=== PATIENT | female | born 1995 | race African-American/Black ===

== ENCOUNTER 2019-01-02 12:33 | Inpatient (IN) | payer MEDICAID, OTHER ==
[2019-01-02 13:15] VITALS: BMI 38.0
[2019-01-02 13:48] LABS: Amnisure Internal Control QC ACCEPTABLE (ACCEPTABLE); Amnisure Test RUPTURE DETECTED (No Rupture)
[2019-01-02] MEDS ORDERED: hydrALAZINE 20 MG/ML VIAL SLOW IVP PRN ×2 (13:50→14:11)
[2019-01-02] MEDS ORDERED: NS / Oxytocin 40 units/1000ml 1,000 ML IV PRN (14:11)
[2019-01-02] MEDS ORDERED: Misoprostol 100 MCG TAB PO SCH ×3 (14:11→23:15)
[2019-01-02] MEDS ORDERED: Promethazine HCl 25 MG/ML VIAL IM PRN (14:11)
[2019-01-02] MEDS ORDERED: Ondansetron PF 4 MG/2 ML Vial IVP PRN (14:11)
[2019-01-02] MEDS ORDERED: Lidocaine 1% (PF) 30 ML VIAL SC PRN (14:11)
--- NOTE | 2019-01-02 14:30 | PDOC.LDHP ---
Labor and Delivery H&P HPI: 23 yo G1 at 37.5 by LMP/15.3wk sono here for leaking. Started last night at 11pm , did not resolve so came in today. Endorses FM, denies VD/VB. Denies any other concerns, feeling excited and nervous about having baby.Sees Dr. Mondragon at [facility]. Desires epidural. Current gestational age (weeks): 37 (37.5) Grav: 1 Para: 0 OB History Details: No complications during , first Current medications: pre-clinton vitamins Allergies/Adverse Reactions: Allergies Allergy/AdvReac Type Severity Reaction Status Date / Time No Known Allergies Allergy Verified 01/02/19 13:10 Social history: none - Physical Exam Vital signs reviewed and normal: yes General: NAD, resting Heart: RRR Lungs: CTAB Abdomen: NTTP Extremeties: no edema FHT: category 1 (150/mod/accels) [place] contractions every: uterine irritability - Vaginal Exam cm dilated: 1 Effacement: 0% Station: -3 - OB Labs Blood type: B RH: positive Antibody Screen: negative RPR: negative HEPSAg: negative 1 hour GCT: negative (125) Rubella: immune Additional Labs: chlamydia negative gonorrhea negative - Assessment L&D Assessment: term rupture in membranes - Plan Plan: admit to L&D -: 23 yo G1 at 37.5 by LMP/15.3 wk sono here for term SROM 1. sIUP, latent labor, SROM -amnisure positive, 1.5/th/high -> PO cytotec 50mcg, recheck in four hours -when sanches 6, start pit since has been ruptured 11 hours -FHT Cat I, uterine irritability -GBS pending, mom getting yellow card. If positive needs PCN ppx -did not obtain 3T labs, will rpt here 2. Anemia of -Hb 10.5 in September, stable -Sickle cell index negative -Can recheck after vs. empirically start on PO iron Admit to L&D for induction of labor Discussed with Dr. Isabel Ness - Attending - Attending Attestation Date/Time: 01/02/191900 I personally evaluated the patient and discussed the management with Dr. [] I agree with the History, Examination, Assessment and Plan documented above with any addition or exceptions noted below. GBS unknown. No RF. No PCN indicated at this time. No e/o chorioamnionitis. status reassuring.
[2019-01-02] MEDS: Lactated Ringer's 1,000 ML IV SCH ×2 (14:50→23:38)
[2019-01-02 17:09] LABS: Hemoglobin 11.4 g/dL (12.0-16.0); Mean Corpuscular HGB CONC 33.9 g/dL (32.0-36.0); Mean Corpuscular Hemoglobin 30.7 pg (27.0-31.0); Mean Corpuscular Volume 90.5 fL (78.0-98.0); Mean Platelet Volume 7.2 fL (7.4-10.4); Platelet Count 249 thou/uL (130-400); RBC Distribution Width 12.1 % (11.5-14.5); Red Blood Cell (RBC) Count 3.73 mill/uL (4.20-5.40); White Blood Cell (WBC) Count 7.2 thou/uL (4.8-10.8)
[2019-01-02 17:37] LABS: Syphilis Antibody Nonreactive (Nonreactive); Syphilis Antibody Index 0.12 S/CO (<1.00 Non-Reactive)
[2019-01-02 17:39] LABS: HBSAg Index 0.23 S/CO (0-0.99); HIV (1/2) Antibody/Antigen Non-Reactive (NonReactive); HIV 1/2 INDEX 0.08 S/CO (<1.00); Hep B Surf Ag Non-Reactive S/CO (NonReactive)
--- NOTE | 2019-01-02 20:23 | PDOC.LDPN ---
Labor & Delivery Progress Note - Subjective Subjective: comfortable - Objective Vital signs reviewed and normal: yes General: resting Uterine fundus: non tender Dilation: 2 Effacement: 0% Station: -3 FHT: category 1 [place] contractions every: uterine irritability - Assessment (1) Term Code(s): Z34.90 - ENCNTR FOR SUPRVSN OF NORMAL , UNSP, UNSP TRIMESTER Current Visit: Yes Status: Acute Plan: labor augmentation -: 23 yo G1 at 37.5 by LMP/15.3 wk sono here for IOL for SROM 1. sIUP, latent labor, SROM -amnisure positive -//, give 2nd dose of cytotec 25mcg, recheck 4 hours -FHT Cat I, uterine irritability -GBS negative 2. Prolonged rupture of membranes -ruptured on 01/01 @ 2300 -no fever, stable -continue to monitor for s/s infection 3. Anemia of -Hb 10.5 in September, stable -Sickle cell index negative -Can recheck after vs. empirically start on PO iron Continue labor augmentation Discussed with Dr. Hall
--- NOTE | 2019-01-02 23:11 | PDOC.LDPN ---
Labor & Delivery Progress Note - Subjective Subjective: comfortable, no concerns - Objective Vital signs reviewed and normal: yes (BP110/72, HR 108) General: NAD, resting, breathing through contractions Uterine fundus: non tender Dilation: 3 Effacement: 25% Station: -3 FHT: category 1 (FHR 157), variability present [place] contractions every: 5-6 min via palpation Plan: continue plan of care -: 23 yo G1 at 37.5 by LMP/15.3 wk sono here for IOL for SROM 1. sIUP, latent labor, SROM -amnisure positive -3/20%/-3, give 3rd dose of cytotec 50mcg (will have received 125 mcg total), recheck 4 hours -FHT Cat I, uterine irritability -GBS negative 2. Prolonged rupture of membranes -ruptured on 01/01 @ 2300 -no fever, stable -continue to monitor for s/s infection 3. Anemia of -Hb 10.5 in September, stable -Sickle cell index negative -Can recheck after vs. empirically start on PO iron Dispo: Continue labor augmentation with cytotec. Current Rojas score of 4 (2 for dilation, 2 for soft consistency). Will plan for next check in 4 hours.
--- NOTE | 2019-01-03 01:03 | PDOC.LDPN ---
Labor & Delivery Progress Note - Subjective Subjective: comfortable - Objective Vital signs reviewed and normal: yes (BP 115/69, HR 93) General: NAD, resting, breathing through contractions Uterine fundus: non tender Dilation: 3 Effacement: 25% Station: -3 FHT: category 2 (FHR 145), late decelerations, variability present [place] contractions every: 5-6 min IUPC placed: yes (@1250) Resuscitative measures: maternal position change Plan: continue plan of care -: 23 yo G1 at 37.5 by LMP/15.3 wk sono here for IOL for SROM 1. sIUP, latent labor, SROM -amnisure positive -3/20%/-3, give 3rd dose of cytotec 50mcg @2300 01/02/19 (has received 125 mcg total), recheck due at 0300 01/03/19 -FHT Cat 2 with appearance of late decels, uterine irritability--IUPC placed @ 0050 01/03/19 due to difficulty evaluating contraction pattern -initial maternal position changes not effective, continue to monitor closely & make changes as needed, s/p 1L bolus -GBS negative 2. Prolonged rupture of membranes -ruptured on 01/01 @ 2300 -no fever, stable -continue to monitor for s/s infection 3. Anemia of -Hb 10.5 in September, stable -Sickle cell index negative -Can recheck after vs. empirically start on PO iron Dispo: Continue labor augmentation with cytotec. Current Rojas score of 4 (2 for dilation, 2 for soft consistency). IUPC placed, will continue to monitor for late decels. Will plan for next check in 2 hours.
[2019-01-03] MEDS ORDERED: Fentanyl 4 mcg/Bup 0.1% Cadd 100 ML ONE (01:23)
[2019-01-03] MEDS ORDERED: Naloxone HCl 0.4 mg/ml Vial IVP PRN ×4 (01:25→11:29)
[2019-01-03] MEDS ORDERED: ePHEDrine/0.9% NaCl/PF SYRINGE 50 mg/10 ml SLOW IVP PRN (01:25)
[2019-01-03] MEDS ORDERED: Acetaminophen 325 MG TAB PO PRN ×2 (01:25→12:37)
[2019-01-03] MEDS ORDERED: Ondansetron PF 4 MG/2 ML Vial IVP PRN ×3 (01:25→12:37)
[2019-01-03] MEDS ORDERED: Lactated Ringer's 500 ML IV PRN (01:25)
[2019-01-03] MEDS ORDERED: diphenhydrAMINE 50 MG/ML VIAL IVP PRN ×2 (01:25→11:29)
[2019-01-03] MEDS ORDERED: Promethazine HCl 25 MG/ML VIAL IM PRN ×2 (01:25→11:29)
[2019-01-03] MEDS ORDERED: Fentanyl 4 mcg/Bupivacaine 0.1% Cassette 100 ML EPIDURAL SCH (01:30)
[2019-01-03] MEDS ORDERED: Communication Order-Pharmacy FS SCH ×2 (01:30→11:30)
[2019-01-03] MEDS: Lactated Ringer's 1,000 ML IV SCH ×3 (02:00→23:36)
--- NOTE | 2019-01-03 03:07 | PDOC.LDPN ---
Labor & Delivery Progress Note - Subjective Subjective: comfortable - Objective Abnormal vital signs: Initial SBP 70's General: NAD, resting SVE: at appx 2:20 Dilation: 3 Effacement: 25% Station: -3 FHT: category 2, variable decelerations, late decelerations, variability present [place] contractions every: q5-6 min Procedures: Epidrual - Assessment (1) Term Code(s): Z34.90 - ENCNTR FOR SUPRVSN OF NORMAL , UNSP, UNSP TRIMESTER Current Visit: Yes Status: Acute -: Received call at appx 2:20 in regards to late decelerations and maternal SBP in 70's. This was approximately 20 minutes after receiving epidural. Resuscitative measures taken to include bolus of LR, maternal position changes, ephedrine x2 ( 20 mg). Patient also on oxygen. Advised they put patient in slight trendelenberg. Patient's BP responded well. BP on repeat in low 100's systolic. Patient no longer feeling nauseous. Patient's strip has been category II since around 23:00 last night. Patient has received 3 doses of cytotec orally for a total of 125 mcg cytotec. Her cervical check just after epidural was unchanged at 3/20/-3. Will hold off on augmentation at this time and allow for strip to recover. Patient remains afebrile and has no signs/symptoms of infection. Will continue to monitor and augment as tolerated.
--- NOTE | 2019-01-03 09:10 | PDOC.LDPN ---
Labor & Delivery Progress Note - Subjective Subjective: comfortable - Objective Abnormal vital signs: BP 117/60, HR 111 Uterine fundus: non tender Dilation: 4 Effacement: 50% Station: -3 FHT: category 2, late decelerations (frequent with cx every 6 min; 1 episode lasting 2 min with FHR in 60s), variability present [place] contractions every: 6 min Resuscitative measures: maternal oxygen, maternal IV fluids, maternal position change Plan: resuscitative measures, other (anticipate likely) -: 23 yo G1 at 37.5 by LMP/15.3 wk sono here for IOL for SROM 1. sIUP, latent labor, SROM -amnisure positive -GBS negative -5/40%/-3, given 3rd dose of cytotec 50mcg @2300 01/02/19 (has received 125 mcg total) -FHT Cat 2 with appearance of late decels, uterine irritability--IUPC placed @ 0050 01/03/19 due to difficulty evaluating contraction pattern -initial maternal position changes not effective, continue to monitor closely & make changes as needed, s/p 1L bolus -extensive discussion was had with patient regarding increasing likelihood that she will need a . Patient was discussed with options for further care and plan for labor. Patient prefers to have performed and states she does not want any more medication for labor augmentation. Risks, benefits, alternatives all discussed with patient and she voices understanding. 2. Prolonged rupture of membranes -ruptured on 01/01 @ 2300 -no fever, continue to monitor for s/s infection -will consider starting amnioinfusion if condition deteriorates 3. Anemia of -Hb 10.5 in September, stable -Sickle cell index negative -Can recheck after vs. empirically start on PO iron Dispo: Continue to hold labor augmentation given recurrent late decels. IUPC placed, will continue to monitor FHR tracing closely. Will plan for next check in 2 hours.
--- NOTE | 2019-01-03 10:08 | PDOC.LDPN ---
Labor & Delivery Progress Note - Subjective Subjective: comfortable - Objective Abnormal vital signs: low normal blood pressures General: resting Uterine fundus: non tender Station: -3 FHT: category 3 [place] contractions every: q10min FSE placed: yes - Assessment (1) Term Code(s): Z34.90 - ENCNTR FOR SUPRVSN OF NORMAL , UNSP, UNSP TRIMESTER Current Visit: Yes Status: Acute -: 23 yo G1 at 37.5 by LMP/15.3 wk sono here for IOL for SROM 1. sIUP, latent labor, SROM -amnisure positive -GBS negative -5/40%/-3, given 3rd dose of cytotec 50mcg @2300 01/02/19 (has received 125 mcg total) -FHT Cat 2 due to late decels. See following event note for further details 2. Prolonged rupture of membranes -ruptured on 01/01 @ 2300 -no fever, continue to monitor for s/s infection 3. Anemia of -Hb 10.5 in September, stable -Sickle cell index negative -Can recheck after vs. empirically start on PO iron Dispo: Continue to hold labor augmentation given recurrent late decels, expectantly manage Addendum - Attending - Attending Attestation Date/Time: 01/03/19 9863 I personally evaluated the patient and discussed the management with Dr. Etienne. I agree with the Assessment and Plan documented above.
--- NOTE | 2019-01-03 10:12 | PDOC.EVN ---
Event Note - Event Note Event Note: Patient had prolonged 3 minute late deceleration with HR drop into the 80s. FSE placed and amnioinfusion started with heart rate improved to 130s. Patient asx during this time. Hold pitocing due to NRFHT. Patient blood pressure stable. Check unchanged at 4/50/-3. Plan is for c section, this was discussed with patient. Addendum - Attending - Attending Attestation Date/Time: 01/03/19 2462 I personally evaluated the patient and discussed the management with Dr. Etienne. I agree with the Assessment and Plan documented above.
--- NOTE | 2019-01-03 10:28 | PDOC.EVN ---
Event Note - Event Note Event Note: Patient with recurrent late decelerations. C section planned due to non reassuring heart tones. Discussed with patient who understands risks and benefits. Addendum - Attending - Attending Attestation Date/Time: 01/03/19 3967 I personally evaluated the patient and discussed the management with Dr. Etienne. I agree with the Assessment and Plan documented above.
[2019-01-03] MEDS ORDERED: Azithromycin 500 MG VIAL ONE (10:29)
[2019-01-03] MEDS ORDERED: Ketorolac Tromethamine 30 MG/ML VIAL ONE ×2 (10:30→10:41)
[2019-01-03] MEDS ORDERED: Ondansetron PF 4 MG/2 ML Vial ONE ×2 (10:30→10:41)
[2019-01-03] MEDS ORDERED: Bicitra 30 ML UDCUP PO SCH (10:30)
[2019-01-03] MEDS ORDERED: Dexamethasone 20 MG/5 ML VIAL ONE (10:30)
[2019-01-03] MEDS ORDERED: PHENYLEPHRINE-NS 100 MCG/ML 10 ML SYRINGE ONE ×2 (10:30→10:42)
[2019-01-03] MEDS ORDERED: CEFAZOLIN 2 GM in Premix Bag 1 BAG IV ONE (10:30)
[2019-01-03] MEDS ORDERED: diphenhydrAMINE 50 MG/ML VIAL ONE ×2 (10:30→11:01)
[2019-01-03] MEDS ORDERED: Azithromycin 500 MG in Sodium Chloride 0.9% 250 ML 250 ML IVPB SCH (10:30)
[2019-01-03] MEDS ORDERED: Lidocaine 2% PF 5 ML VIAL ONE (10:30)
[2019-01-03] MEDS ORDERED: Oxytocin 10 UNITS/ML VIAL ONE (10:41)
[2019-01-03] MEDS ORDERED: Dexamethasone 4 mg/ml Vial ONE (10:41)
[2019-01-03] MEDS ORDERED: MORPHINE 5 MG/10 ML PF VIAL ONE (10:42)
[2019-01-03] MEDS ORDERED: Lidocaine 2% 10 ML INJ ONE (10:44)
[2019-01-03] MEDS ORDERED: ePHEDrine/0.9% NaCl/PF SYRINGE 50 mg/10 ml ONE (11:11)
[2019-01-03] MEDS ORDERED: Bupivacaine/Epinephrine 0.25% 30 ML VIAL ONE (11:11)
[2019-01-03] MEDS ORDERED: Lidocaine 2% MPF 10 ML AMP (For Epidural Use) ONE (11:11)
[2019-01-03] MEDS ORDERED: Promethazine HCl 25 MG SUPP PR PRN (11:29)
[2019-01-03] MEDS ORDERED: Naloxone HCl 0.4 mg/ml Vial IV PRN (11:29)
[2019-01-03] MEDS ORDERED: Meperidine HCl/PF 25 MG/ML VIAL SLOW IVP PRN (11:29)
[2019-01-03] MEDS ORDERED: HYDROmorphone 2 MG/ML VIAL SLOW IVP PRN (11:29)
[2019-01-03] MEDS ORDERED: Ondansetron HCl/PF 4 MG/2 ML Vial IVP PRN (11:29)
[2019-01-03] MEDS ORDERED: L&D-Morphine 4 MG/ML VIAL SLOW IVP PRN (11:29)
--- NOTE | 2019-01-03 12:00 | OP ---
DATE OF PROCEDURE: 01/03/2019 PREOPERATIVE DIAGNOSES: 1. Term intrauterine in early labor. 2. Non-reassuring heart rate tracing. POSTOPERATIVE DIAGNOSES: 1. Term intrauterine in early labor. 2. Non-reassuring heart rate tracing. PROCEDURE PERFORMED: Primary low segment transverse section via Pfannenstiel incision. SURGEON: Alexander Mims MD STEWARDESS SUPERVISOR: Ayesha Mondragon MD, resident physician. PROPHYLAXIS: Ancef 2 g with 500 mg of Zithromax prior to incision. ESTIMATED BLOOD LOSS: 600 mL, QBL pending. COMPLICATIONS: None. FINDINGS: 1. Viable male infant, weight 6 pounds 11 ounces. Apgars 8 and 9, found in the cephalic presentation. 2. Normal uterus, tubes, and ovaries bilaterally. DESCRIPTION OF PROCEDURE: After good epidural anesthesia was achieved, the patient was prepped and draped in the usual sterile fashion in the supine position with a leftward tilt. A Pfannenstiel incision was made 2 fingerbreadths above the symphysis pubis and the abdomen was entered in layers. The [place] O retractor was placed. A bladder flap was created in the lower uterine segment. A transverse incision was made across the lower uterine segment and was extended bluntly. The fetus was found in the cephalic presentation and was easily delivered. The placenta was then manually removed. The inside of the uterus was curetted with a dry lap to remove all remaining placental fragments. Closure of the uterine incision was begun using a running locking suture of Monocryl. Good hemostasis was noted with single-layer closure. The self-retaining retractor was then removed. The pelvic gutters were cleared of all clots and debris. The peritoneum was reapproximated using 2-0 chromic suture. The rectus muscle bed was made dry. The fascia was closed using 2 sutures of PDS, brought laterally to the midline in an alternating running locking fashion. The subcutaneous tissue was thoroughly irrigated and made dry using Bovie coagulation technique. The skin was closed with metal dalton. Sponge, lap, and needle counts were correct. The patient tolerated the procedure well and was taken to the recovery room in good condition. Job ID: [id number] [facility]
[2019-01-03] MEDS ORDERED: Bisacodyl 10 MG SUPP PR PRN (12:37)
[2019-01-03] MEDS ORDERED: Lanolin Ointment 7 GM TUBE TOP PRN (12:37)
[2019-01-03] MEDS ORDERED: Adacel (T-DAP) 0.5 ML SYRINGE IM ONE (12:37)
[2019-01-03] MEDS ORDERED: hydrALAZINE 20 MG/ML VIAL SLOW IVP PRN (12:37)
[2019-01-03] MEDS: Ibuprofen 800 MG TAB PO SCH ×2 (14:51→23:20)
--- NOTE | 2019-01-03 16:19 | PDOC.OBPPN ---
FMR OB PN: Subj - Interval History Hospital Day: 2 Day: 0 Chief Complaint: None Indentification: pp day #0 s/p primary LTCS for NRFHTs. Interval History: Patient doing well on PP. Would like to eat. FMR OB PN: Obj - Maternal Vital signs: BP: 109/64 HR: 84 RR: 18 Tmax: 99.2F Pox: 99% on RA Wt: 97 kg - Urine output I&O: 01/02/19 01/03/19 01/04/19 06:59 06:59 06:59 Output Total 510 Balance -510 - Lochia Lochia: normal - Pain Management Pain scale: 0 Intervention: oral medication FMR OB PN: Exam - Physical Exam General: NAD, awake, alert and oriented HEENT: normocephalic and atraumatic, grossly normal vision, grossly normal hearing Heart: RRR, normal S1/S2, no murmurs/rubs/gallops General: CTAB, no respiratory distress, good air movement, no rales/rhonchi, no wheezing, no retractions Abdomen: soft, non-tender Musculoskeletal: FROM in all four extremities Neurological: cranial nerves II through XII intact, sensation to pain,touch and proprioception grossly normal, no focal deficit Skin: no rash, good tugor : bandage intact Lymphatic: no unusual bruising or bleeding, no purpura Psychiatric: intact recent and remote memory, good judgement and insight, normal mood and affect - Pelvic Exam : non-tender FMR OB PN: Data - Labs Lab results: Laboratory Results - last 24 hr 01/02/19 01/02/19 01/02/19 16:39 16:39 16:39 WBC RBC Hgb Hct MCV MCH MCHC RDW Plt Count MPV Syphilis IgG/IgM Ab Nonreactive Hep Bs Antigen Non-Reactive HIV 1&2 Antigen & Ab Non-Reactive Blood Type B POSITIVE Antibody Screen NEGATIVE 01/02/19 16:39 WBC 7.2 RBC 3.73 L Hgb 11.4 L Hct 33.7 L MCV 90.5 MCH 30.7 MCHC 33.9 RDW 12.1 Plt Count 249 MPV 7.2 L Syphilis IgG/IgM Ab Hep Bs Antigen HIV 1&2 Antigen & Ab Blood Type Antibody Screen FMR OB PN: A/P - Problem List (1) Non-reassuring heart tones, delivered, current hospitalization Current Visit: Yes Status: Acute Code(s): O76 - ABNLT IN HEART RATE AND RHYTHM COMP LABOR AND DELIVERY (2) Term Current Visit: Yes Status: Acute Code(s): Z34.90 - ENCNTR FOR SUPRVSN OF NORMAL , UNSP, UNSP TRIMESTER Disposition: 23 yo who is PP day #0 s/p a primary LTCS at 37.6 weeks for NRFHTs. PP day #0, s/p primary LTCS for NRFHTs: - VSS. Patient doing well. Reports good pain control & denies any nausea or excessive bleeding. Perez still in place. - Continue routine PP C/S care. 2. Anemia of - H/H 11.4/33.7 on admission with a QBL of 510mL since delivery. - Will continue PNVs & check an AM H/H to monitor. Dispo: Continue routine PP C/S care. Discussion: Date/Time: 01/03/19 2046 This H&P was discussed with Dr. Mims who agrees with the above documentation and plan. Addendum - Attending - Attending Attestation Date/Time: 01/03/19 6221 I personally evaluated the patient and discussed the management with Dr. Juares. I agree with the Assessment and Plan documented above.
[2019-01-03] MEDS: Ketorolac Tromethamine 30 MG/ML VIAL IVP SCH ×2 (17:37→23:38)
[2019-01-04] MEDS: Ferrous Sulfate 325 MG TAB PO SCH ×3 (04:35→21:11)
[2019-01-04 05:19] LABS: Hemoglobin 9.7 g/dL (12.0-16.0); Mean Corpuscular HGB CONC 32.9 g/dL (32.0-36.0); Mean Corpuscular Hemoglobin 29.6 pg (27.0-31.0); Mean Corpuscular Volume 90.1 fL (78.0-98.0); Mean Platelet Volume 7.2 fL (7.4-10.4); Platelet Count 212 thou/uL (130-400); Red Blood Cell (RBC) Count 3.27 mill/uL (4.20-5.40); White Blood Cell (WBC) Count 13.3 thou/uL (4.8-10.8)
[2019-01-04] MEDS ORDERED: Sodium Chloride 0.9% 10 ML ONE (06:17)
[2019-01-04] MEDS: Ibuprofen 800 MG TAB PO SCH ×3 (06:23→21:11)
[2019-01-04] MEDS: Ketorolac Tromethamine 30 MG/ML VIAL IVP SCH ×2 (06:36→09:35)
--- NOTE | 2019-01-04 08:01 | PDOC.PP ---
Post Progress Note Post Day #: 1 Subjective: Pain well controlled with scheduled ibuprofen. Ambulating and tolerating PO. Urinating but no BM. Interested in . PO intake tolerated: yes Flatus: no Ambulation: yes Vital Signs (12 hours) Temp Pulse Resp BP Pulse Ox 01/04/19 00:45 98 01/03/19 20:30 97.5 F L 86 18 117/55 L 98 Weight Weight 97.522 kg - Physical Examination General: NAD Cardiovascular: no m/r/g, RRR Respiratory: clear to auscultation bilaterally, non-labored breathing Abdominal: + bowel sounds Fundus firm & at: below umbilicus Skin: CS incision dry & intact Neurological: no gross focal deficits Psychiatric: A&Ox3, normal affect Result Diagrams: 01/04/19 04:59 Additional Labs: Post Labs Blood Type B POSITIVE 01/02/19 16:39 Hep Bs Antigen Non-Reactive S/CO (NonReactive) 01/02/19 16:39 - Assessment/Plan 23 yo POD #1 s/p pLTCS at 37.6 weeks for NRFHTs. POD #1 s/p pLTCS for NRFHTs - VSS. Meeting PP milestones - Will need dalton removed - Continue routine PP C/S care Anemia of - H/H 11.4/33.7 --> 9/7/29.4 - Continue Iron supplementation Dispo: Likely tomorrow morning Ayesha Mondragon MD PGY-[address] Mims who evaluated the patient. Addendum - Attending - Attending Attestation Date/Time: 01/07/19 1037 I personally evaluated the patient and discussed the management with Dr. Mondragon. I agree with the Assessment and Plan documented above.
[2019-01-04] MEDS: Prenatal Vitamin 1 TAB PO SCH (09:07)
[2019-01-05] MEDS: Ibuprofen 800 MG TAB PO SCH ×3 (05:17→21:56)
--- NOTE | 2019-01-05 07:29 | PDOC.PP ---
Post Progress Note Post Day #: 2 Subjective: Pain is well controlled. Tolerating PO and ambulating. Bleeding has slowed down. 2 BMs yesterday. PO intake tolerated: yes Flatus: yes Ambulation: yes Vital Signs (12 hours) Temp Pulse Resp BP Pulse Ox 01/05/19 05:15 98.6 F 88 20 114/71 01/05/19 00:10 98.8 F 80 18 102/59 L 01/04/19 21:00 97 01/04/19 19:33 99.1 F 103 H 16 110/64 97 Weight Weight 97.522 kg - Physical Examination General: NAD Cardiovascular: no m/r/g, RRR Respiratory: clear to auscultation bilaterally, non-labored breathing Abdominal: + bowel sounds, lochia, appropriately TTP Fundus firm & at: below umbilicus Skin: CS incision dry & intact (dalton present) Neurological: no gross focal deficits Psychiatric: A&Ox3, normal affect Result Diagrams: 01/04/19 04:59 Additional Labs: Post Labs Blood Type B POSITIVE 01/02/19 16:39 Hep Bs Antigen Non-Reactive S/CO (NonReactive) 01/02/19 16:39 - Assessment/Plan 23 yo POD #2 s/p pLTCS at 37.6 weeks for NRFHTs. POD #2 s/p pLTCS for NRFHTs - VSS. Meeting PP milestones - Will need dalton removed - Continue routine PP C/S care Anemia of - H/H 11.4/33.7 --> 9/7/29.4 - Continue Iron supplementation Dispo: Today or tomorrow depending on baby's dispo plan Ayesha Mondragon MD PGY-[address] Rider who evaluated the patient.
[2019-01-05] MEDS: Prenatal Vitamin 1 TAB PO SCH (21:04)
[2019-01-05] MEDS: Ferrous Sulfate 325 MG TAB PO SCH ×2 (21:04→21:55)
[2019-01-05 22:50] VITALS: TEMP 98.1
[2019-01-06] MEDS: Ibuprofen 800 MG TAB PO SCH ×2 (06:38→13:04)
--- NOTE | 2019-01-06 07:30 | PDOC.PP ---
Post Progress Note Post Day #: 3 Subjective: Pain well controlled. No overnight events. No concerns this morning. PO intake tolerated: yes Flatus: yes Ambulation: yes Vital Signs (12 hours) Temp Pulse Resp BP Pulse Ox 01/05/19 21:30 98.1 F 95 20 135/86 99 Weight Weight 97.522 kg - Physical Examination General: NAD Cardiovascular: no m/r/g, RRR Respiratory: clear to auscultation bilaterally, non-labored breathing Abdominal: + bowel sounds, lochia Skin: CS incision dry & intact Neurological: no gross focal deficits Psychiatric: A&Ox3, normal affect Result Diagrams: 01/04/19 04:59 Additional Labs: Post Labs Blood Type B POSITIVE 01/02/19 16:39 Hep Bs Antigen Non-Reactive S/CO (NonReactive) 01/02/19 16:39 - Assessment/Plan 23 yo POD #3 s/p pLTCS at 37.6 weeks for NRFHTs. POD #3 s/p pLTCS for NRFHTs - VSS. Meeting PP milestones - Will need dalton removed 02/07 or 01/08 - Desires OCPs for contraception Anemia of - H/H 11.4/33.7 --> 9.7/29.4 - Continue Iron supplementation Dispo: Discharge today Ayesha Mondragon MD PGY-[address] Castaneda who evaluated the patient.
[2019-01-06] MEDS: Prenatal Vitamin 1 TAB PO SCH (09:04)
[2019-01-06] MEDS: Ferrous Sulfate 325 MG TAB PO SCH (09:07)
[2019-01-06 11:19] VITALS: BP 123/58
--- NOTE | 2019-01-07 05:25 | PQF ---
[employer] Legal Writing Professor Crystal Reports Winform Viewer FERMIN ASIF RADU SINGER [id number] CLINICAL DOCUMENTATION CLARIFICATION FORM: POST DISCHARGE Addendum to original discharge summary date: ____ Late entry note date: __ DATE: 01/07/19 ATTN: Radu Hand Please exercise your independent, professional judgment in responding to the clarification form. Clinical indicators are provided on the bottom of this form for your review Can you please further specify the specificity of anemia based on the clinical indicators below? Please check appropriate box(s): [ ] Acute blood loss anemia [ ] Post-op anemia related to acute blood loss [ ] Anemia unspecified [ ] Other diagnosis [ ] Unable to determine In addition, please specify: Present on Admission (POA): [ ] Yes [ ] No [ ] Unable to determine For continuity of documentation, please document condition throughout progress notes and discharge summary. Thank You. CLINICAL INDICATORS - SIGNS / SYMPTOMS / LABS PN 01/02 pg.2-Anemia of , H/H 11.4/33.7--> 9/7/29.4, continue iron supplement OP report 01/03- pg.1 - Estimated blood loss 600ml Laboratory- HGB 9.7L, 11.4L Laboratory HCT 29.4L 33.7L Laboratory RBC 3.73L, 3.27L Vital Signs Pulse: 103 01/04 Vital Signs BP 110/53, 117/55 RISK FACTORS s/p CS delivery OP Note 01/03 37.5 weeks gestation HP 01/02 TREATMENTS: IV Fluids- MAR H and H monitoring- Laboratory Ferrous Sulfate 325mg PO- MAY 31 (This form is maintained as a part of the permanent medical record) 2014 [employer]. All Rights Reserved Genaro [email or web address] [not provided] MTDD
--- NOTE | 2019-01-07 05:29 | PQF ---
[employer] Choir Director Crystal Reports Winform Viewer FERMIN ASIF EMILIE SINGER [id number] CLINICAL DOCUMENTATION CLARIFICATION FORM: POST DISCHARGE Addendum to original discharge summary date: ____ Late entry note date: __ DATE: 01/07/19 ATTN: Emilie Hand Please exercise your independent, professional judgment in responding to the clarification form. Clinical indicators are provided on the bottom of this form for your review ___ Final Diagnosis on the Pathology report: Acute chorioamnionitis, grade 2-3 ___ Progress Notes indicate: Placenta Clarification of Pathology report: Please check appropriate box(s): [ ] Agree w the pathology finding of: [ ] Other explanation of pathology findings (please specify) [ ] Other diagnosis [ ] Unable to determine For continuity of documentation, please document condition throughout progress notes and discharge summary. Thank You. CLINICAL INDICATORS - SIGNS/ SYMPTOMS / LABS OP Note 01/03 "The placenta was then manually removed" OP Note 01/03 "uterus was curetted with a dry lap to remove all remaining placental fragments" Path 01/04 " membranes-acute chorioamnionitis,grade 2-3" RISK FACTORS s/p CS delivery OP Note 01/03 37.5 weeks gestation HP 01/02 Non-reassuring heart rate - OP Note 01/03 PN PUT IN BEAT ADJUSTER 01/03 - Anemia of TREATMENTS IV Fluids- MAR Manual removal of placenta - OP Note 01/03 (This form is maintained as a part of the permanent medical record) 2014 [employer] All Rights Reserved Genaro [email or web address] [not provided] MTDD
== END 2019-01-06 13:44 | disposition home or self-care (01) | DRG 788 ==
LOC: L&D/OP 12:33 → L&D 14:28 → 3SW 01-03 13:50
PROVIDERS: ADMIT Student in an Organized Health Care Education/Training Program; ATTEND Student in an Organized Health Care Education/Training Program
PROC: 10D00Z1 Extraction of Products of Conception, Low, Open Approach (ICD-10-PCS; principal; 2019-01-03)
PROC: 3E0P7VZ Introduction of Hormone into Female Reproductive, Via Natural or Artificial Opening (ICD-10-PCS; 2019-01-03)
PROC: 3E033VJ Introduction of Other Hormone into Peripheral Vein, Percutaneous Approach (ICD-10-PCS; 2019-01-03)
PROC: 10H07YZ Insertion of Other Device into Products of Conception, Via Natural or Artificial Opening (ICD-10-PCS; 2019-01-03)
PROC: 3E0E7GC Introduction of Other Therapeutic Substance into Products of Conception, Via Natural or Artificial Opening (ICD-10-PCS; 2019-01-03)
DX: O76 Abnormality in fetal heart rate and rhythm complicating labor and delivery (principal); O99.02 Anemia complicating childbirth; O69.81X0 Labor and delivery complicated by cord around neck, without compression, not applicable or unspecified; D64.9 Anemia, unspecified; Z3A.37 37 weeks gestation of pregnancy; Z37.0 Single live birth
CPT/HCPCS: 36415; 51702; 84112; 85027; 86780; 86850; 86900; 86901; 87340; 87389; 88307; 99285; J0456; J0690; J1100; J1200; J1885; J2001; J2274; J2405; J2590

== ENCOUNTER 2023-02-16 14:40 | Emergency (ER) | payer OTHER | END 2023-02-16 16:41 | disposition home or self-care (01) | LOC: ERS 14:40 | DX: J06.9 Acute upper respiratory infection, unspecified (principal) | CPT/HCPCS: 99283 ==